=== PATIENT | female | born 1985 | race African-American/Black ===

== ENCOUNTER 2016-10-25 08:36 | Emergency (ER) | payer SELFPAY ==
--- NOTE | 2016-10-26 10:00 | ER ---
ADMIT: 10/25/2016 RM/LOC: ER [facility] MR#: [id number] [id number] [place], [place] [id number] MAMADOU CACERES KAY [address] [place] [address] Emergency Room Report SEX: F AGE: 31 : 1985 DATE: 10/25/2016 CHIEF COMPLAINT: Abdominal pain. HISTORY OF PRESENT ILLNESS: A 31-year-old female who presents to the ER with 2 days duration of lower abdominal pain. She denies any sick contacts or recent travel. She did report she had a small amount of blood in her vomit. She currently rates the pain as 9/10, describes it is in her lower abdomen, radiating to her back. She says she feels hot, but denies any fevers or chills. She feels nauseous. She has vomited 3 times. Admits to diarrhea and loss of appetite. Her last meal was yesterday afternoon. She has some back pain. She says she has had this pain previously when she was . She does admit to some urinary frequency. Last known menstrual period was 10/06/2016. PAST MEDICAL HISTORY: No past medical history of cardiac or diabetes. PAST SURGICAL HISTORY: Includes cholecystectomy and . MEDICATIONS: None. ALLERGIES: NONE. COURSE IN THE EMERGENCY ROOM: The patient is seen and examined. GENERAL: Afebrile. Nontoxic. No acute distress. NECK: Soft and supple. HEENT: Normocephalic and atraumatic. Pharynx nonerythematous. She has moist mucous membranes. CHEST: Clear. HEART: Regular. ABDOMEN: Soft. She has lower abdominal tenderness as well as some low back tenderness. No McBurney point tenderness. BACK: No CVA tenderness. SKIN: Warm and dry. EXTREMITIES; nontender. No pedal edema. NEUROLOGIC: She is alert and oriented. Cooperative with exam. LABORATORY STUDIES: Show white count within normal limits. Hemoglobin 16.6, hematocrit 49.4. Chemistries are unremarkable. Urine was negative. UA shows no signs of infection. ADMIT: 10/25/2016 RM/LOC: ER [facility] MR#: [id number] [facility] [address] [place] [id number] PAY[address] CACERESRA VILLANUEVA [address] [place] [address] Emergency Room Report SEX: F AGE: 31 : 1985 While in department, she received 4 mg of Zofran, 15 mg of Toradol. She was re-examined. She is feeling improved. Ready for discharge. She was able to tolerate p.o. intake. CLINICAL IMPRESSION: 1. Nausea, vomiting, diarrhea. 2. Abdominal pain. DISPOSITION: The patient is discharged home. Increase fluids. I recommended a clear liquid diet to advance as tolerated. I gave her a script for Zofran, #12. She is to follow up with [facility] if not improving. Tylenol or Motrin as needed for pain or fever. Discharged home in stable condition. MAR Bush / Selwyn Leach MD / modl JOB #: [id number] CC: Selwyn Leach MD, Attending Physician
== END 2016-10-25 10:46 | disposition home or self-care (01) ==
LOC: ER 08:36
DX: R10.30 Lower abdominal pain, unspecified (principal); R11.2 Nausea with vomiting, unspecified; R19.7 Diarrhea, unspecified; Z98.890 Other specified postprocedural states